=== PATIENT | female | born 1995 | race Caucasian/White ===

== ENCOUNTER 2019-01-20 00:01 | Emergency (ER) | payer OTHER ==
[~2019-01-20] VITALS: Wt 79.2 kg
[2019-01-20] MEDS ORDERED: LORAZEPAM 1 MG TAB PO ONE (00:30)
[2019-01-20] MEDS ORDERED: LORA1TAB PO (01:38)
--- NOTE | 2019-01-20 01:46 | ERD ---
ER Documentation Chief Complaint Chief Complaint ANXIETY ATTACK HPI 23-year-old female with no significant past medical history brought in by mother with concerns for anxiety attack which began just prior to arrival. The patient states she feels pressure in her chest with associated shortness of breath. She states she has been under a significant amount of stress recently due to a knee injury as well as stress at school. She denies any homicidal or suicidal ideation. She denies any fevers, chills, or other symptoms at this time. ROS All systems reviewed and are negative except as per history of present illness. Medications Home Meds Active Scripts Lorazepam* (Lorazepam*) 1 Mg Tablet, 1 MG PO Q8H PRN for ANXIETY, #10 TAB Prov:NEY SMITH PA-C 01/20/19 Allergies Allergies: Coded Allergies: Penicillins (Verified Allergy, Unknown, 01/20/19) PMhx/Soc Medical and Surgical Hx: pt denies Medical Hx, pt denies Surgical Hx Hx Alcohol Use: No Hx Substance Use: No Hx Tobacco Use: No Smoking Status: Never smoker FmHx Family History: No diabetes Physical Exam Vitals Vital Signs Date Temp Pulse Resp B/P (MAP) Pulse Ox O2 O2 Flow FiO2 Time Delivery Rate 01/20/19 98.6 94 18 117/71 96 Room Air 01:53 (86) 01/20/19 98.9 121 26 137/72 97 00:06 (93) Physical Exam Const: No acute distress Head: Atraumatic Eyes: Normal Conjunctiva ENT: Normal External Ears, Nose and Mouth. Neck: Full range of motion. No meningismus. Resp: Clear to auscultation bilaterally Cardio: Regular rate and rhythm, no murmurs Skin: No petechiae or rashes Back: No midline or flank tenderness Ext: No cyanosis, or edema Neur: Awake and alert Psych: Anxious and tearful. Denies homicidal or suicidal ideation. Results 24 hrs Current Medications Medications Dose Sig/Etelvina Start Time Status Last (Trade) Ordered Route PRN Stop Time Admin Dose Reason Admin Lorazepam 1 mg ONCE ONCE 01/20/19 DC 01/20/19 (Ativan) PO 00:30 00:36 01/20/19 00:31 Procedures/MDM 23-year-old female presenting to the emergency department with complaints of anxiety attack. The patient denied homicidal or suicidal ideation. Patient is found to be tachycardic initially but pulse normalized after administration of Ativan. She was administered Ativan in the department with good response. She was significantly improved prior to discharge. Chest x-ray was negative for any significant acute abnormalities. The full report interpreted by the radiologist may be viewed above. No evidence to suggest pulmonary embolism, pneumothorax, pneumonia, acute coronary syndrome, or other emergencies. Patient stable and appropriate for discharge and further outpatient management. She was in agreement with the diagnosis, plan, need for follow-up, return precautions. EKG: Interpreted by ED physician. Rate/Rhythm: Normal Sinus Rhythm with a rate of 95 bpm. QRS, ST, T-waves: No changes consistent w/ acute ischemia Impression: No evidence of ischemia or arrhythmia Departure Diagnosis: Primary Impression: Anxiety reaction Condition: Fair Patient Instructions: Your Body's Response to Anxiety, Anxiety Reaction Referrals: [facility] YOU HAVE RECEIVED A MEDICAL SCREENING EXAM AND THE RESULTS INDICATE THAT YOU DO NOT HAVE A CONDITION THAT REQUIRES URGENT TREATMENT IN THE EMERGENCY DEPARTMENT. FURTHER EVALUATION AND TREATMENT OF YOUR CONDITION CAN WAIT UNTIL YOU ARE SEEN IN YOUR DOCTORS OFFICE WITHIN THE NEXT 1-2 DAYS. IT IS YOUR RESPONSIBILITY TO MAKE AN APPOINTMENT FOR FOLOW-UP CARE. IF YOU HAVE A PRIMARY DOCTOR --you should call your primary doctor and schedule an appointment IF YOU DO NOT HAVE A PRIMARY DOCTOR YOU CAN CALL OUR PHYSICIAN REFERRAL HOTLINE AT IF YOU CAN NOT AFFORD TO SEE A PHYSICIAN YOU CAN CHOSE FROM THE FOLLOWING [facility] [address] [facility]. [facility] [address] [facility] [facility] [address] [facility] [facility] [address] [facility] [facility] [facility] [address] [facility]. [facility]. [address] Additional Instructions: Call your primary care doctor TOMORROW for an appointment during the next 1-2 days.See the doctor sooner or return here if your condition worsens before your appointment time. NEY SMITH PA-C January 20, 2019 01:46
[2019-01-20 01:53] VITALS: BP 117/71; PULSE 94; RESP 18
--- NOTE | 2019-01-21 14:31 | RADRPT ---
Vent Rate: 95 bpm RR Interval: 0 msec GA Interval: 128 msec QRS Duration: 84 msec QT Interval: 338 msec QTC Interval: 424 msec P-R-T Witt: 68 - 70 - 60 degrees Normal sinus rhythm Normal ECG Electronically Signed By: [facility]
== END 2019-01-20 01:53 | disposition home or self-care (01) ==
LOC: FTE 00:01
DX: F41.9 Anxiety disorder, unspecified (principal)
CPT/HCPCS: 71045; 93005; Z7610

== ENCOUNTER 2019-01-27 22:11 | Emergency (ER) | payer OTHER ==
[~2019-01-27] VITALS: Ht 162.6 cm; Wt 68.6 kg
[~2019-01-27 22:11] MED LIST: LORA1TAB PO
[2019-01-27 22:20] VITALS: Ht 162.6 cm; Wt 68.6 kg
--- NOTE | 2019-01-27 23:45 | ERD ---
ER Documentation Chief Complaint Chief Complaint PANIC ATTACK AT 1999 TOOK MEDS FEELS WORSE NOW HPI This is a 23-year-old female who presents emergency department with complaints of anxiety, panic attack at around 8 PM. Stated that this happened after taking buspirone. LMP: Last month. Denies headache, head injury, loss of consciousness, dizziness, neck pain, neck stiffness, throat pain, difficulty swallowing, difficulty breathing lying flat, shoulder pain, chest pain, chest pressure, back pain, abdominal pain, nausea, vomiting, constipation, diarrhea, urinary symptoms, or possibility being , loss of bowel and bladder control, trauma, injury, falls, difficulty walking due to pain, numbness or tingling sensation, calf pain, recent travel, recent major surgery in the last 3 weeks, calf pain, recent long travel, recent exposure to any illness, recent antibiotic use in the last 3 months, fever, chills, seizures. Past medical history: Anxiety. Depression. Surgical history: Social: Denies smoking, use of alcoholic beverages, use of illegal drugs. ROS All systems reviewed and are negative except as per history of present illness. Medications Home Meds Active Scripts Hydroxyzine Hcl* (Hydroxyzine Hcl*) 50 Mg Tablet, 50 MG PO Q6H PRN for ANXIETY, #30 TAB Prov:ALICIA BRAGG 01/28/19 Lorazepam* (Lorazepam*) 1 Mg Tablet, 1 MG PO Q8H PRN for ANXIETY, #10 TAB Prov:NEY SMITH PA-C 01/20/19 Allergies Allergies: Coded Allergies: Penicillins (Verified Allergy, Unknown, 01/20/19) PMhx/Soc Hx Alcohol Use: No Hx Substance Use: No Hx Tobacco Use: No Physical Exam Vitals Vital Signs Date Temp Pulse Resp B/P (MAP) Pulse Ox O2 O2 Flow FiO2 Time Delivery Rate 01/28/19 98.4 98 16 112/66 98 Room Air 01:18 (81) 01/27/19 115 26 125/64 97 Room Air 23:00 (84) 01/27/19 98.3 140 29 152/85 98 22:20 (107) Physical Exam Const: No acute distress Head: Atraumatic Eyes: Normal Conjunctiva ENT: Normal External Ears, Nose and Mouth. Throat/lips: No lip swelling. No tongue swelling. No drooling. Able to control tongue movement. No facial swelling. No tripoding. No signs of angioedema. Neck: Full range of motion. No meningismus. Resp: Clear to auscultation bilaterally. Chest area: Examined with female compounder helper, RN. No vesicular lesions. No tenderness. Cardio: Regular rate and rhythm, no murmurs Abd: Soft, non tender, non distended. Normal bowel sounds. No abdominal tenderness. Skin: No petechiae or rashes. Color appears normal for ethnicity. No diaphoresis. No skin tenting. No signs of severe dehydration. Back: No midline or flank tenderness Ext: No cyanosis, or edema. No calf tenderness bilaterally. Neur: Awake and alert. No neurological deficits. Psych: Normal Mood and Affect. Denies auditory/visual hallucinations/delusions. Not suicidal. Not homicidal. Has the capacity to decide for herself. Has good support system at home. Results 24 hrs Current Medications Medications Dose Sig/Etelvina Start Time Status Last (Trade) Ordered Route PRN Stop Time Admin Dose Reason Admin Aspirin 325 mg ONCE ONCE 01/28/19 DC 01/28/19 (Aspirin) PO 00:00 00:11 01/28/19 00:01 Lorazepam 1 mg ONCE ONCE 01/28/19 DC 01/28/19 (Ativan) PO 00:00 00:10 01/28/19 00:01 Procedures/MDM Diagnostic tests: EKG: Sinus tachycardia with a ventricular rate of 119 bpm. No STEMI. Read by supervising physician. Treatment: Aspirin. Ativan. Re-evaluation: Denies chest pain, neck pain, chest pressure, difficulty breathing when lying flat, back pain. Denies auditory/visual hallucinations/delusions. No calf tenderness bilaterally. Not suicidal. Not homicidal. Has the capacity to decide for herself. Has good support system at home. Heart rate is 99. Oxygen is 100%. Appears comfortable while waiting in the waiting area. Patient and her mother stated that they are comfortable going home. Differential diagnosis I have low suspicion for sepsis, pulmonary embolism, pneumothorax, pneumonia, DVT. Final diagnosis: Anxiety. Prescription: Hydroxyzine. Follow-up with PCP in the next 24-48 hours. Come back here in the emergency department for any new symptoms or any worsening symptoms. All questions and concerns were answered. Patient and family members verbalized understanding and agreed with plan of care. Hemodynamically stable on discharge. Departure Diagnosis: Primary Impression: Anxiety attack Condition: Stable Additional Instructions: Follow-up with PCP in the next 24-48 hours. Come back here in the emergency department for any new symptoms or any worsening symptoms. ALICIA BRAGG January 27, 2019 23:45
[2019-01-28] MEDS ORDERED: LORAZEPAM 1 MG TAB PO ONE
[2019-01-28] MEDS ORDERED: ASPIRIN 325 MG TAB PO ONE
[2019-01-28] MEDS ORDERED: HYDR50TA15 PO (01:15)
[2019-01-28 01:18] VITALS: BP 112/66; PULSE 98; RESP 16
== END 2019-01-28 01:38 | disposition home or self-care (01) ==
LOC: FTE 22:11
DX: F41.9 Anxiety disorder, unspecified (principal)
CPT/HCPCS: 93005; Z7502; Z7610

== ENCOUNTER 2019-04-28 21:20 | Emergency (ER) | payer OTHER ==
[~2019-04-28] VITALS: Ht 165.1 cm; Wt 65.0 kg
[~2019-04-28 21:20] MED LIST changes: +CEPH-443 PO; +HYDR50TA15 PO; +RANI150T35 PO
[2019-04-28 21:25] VITALS: Ht 165.1 cm; Wt 65.0 kg
[2019-04-28] MEDS ORDERED: RANITIDINE 150 MG TAB PO ONE (22:30)
[2019-04-28] MEDS ORDERED: LIDOCAINE/MYLANTA 40 ML BTL PO ONE (22:30)
[2019-04-28 23:20] VITALS: BP 107/70; PULSE 75; RESP 18
== END 2019-04-28 23:21 | disposition home or self-care (01) ==
LOC: FTE 21:20
DX: N39.0 Urinary tract infection, site not specified (principal)
CPT/HCPCS: 81003; 81025; 87086; Z7502; Z7610; 99283

== ENCOUNTER 2019-05-31 14:11 | Emergency (ER) | payer OTHER ==
[~2019-05-31] VITALS: Ht 160 cm; Wt 64.6 kg
[~2019-05-31 14:11] MED LIST changes: +IBUP-1542 PO; +NITR-58 PO; +ONDA4TAB8 PO; +RANI-535 PO; -RANI150T35 PO
[2019-05-31 14:49] VITALS: Ht 160 cm; Wt 64.6 kg
[2019-05-31] MEDS ORDERED: BELLADONNA/PHENOBARBITAL TAB PO STA (16:06)
[2019-05-31] MEDS ORDERED: SOD CHLORIDE 0.9% 1,000 ML IV STA (16:06)
[2019-05-31] MEDS: ONDANSETRON 4 MG INJ IV STA ×2 (16:27→16:34)
[2019-05-31] MEDS: LIDOCAINE/MYLANTA 40 ML BTL PO STA ×2 (16:28→16:34)
[2019-05-31] MEDS: KETOROLAC 15 MG INJ IV STA ×2 (16:28→16:34)
[2019-05-31] MEDS ORDERED: SOD CHLORIDE 0.9% 100 ML ONE (17:43)
[2019-05-31] MEDS ORDERED: IOHEXOL 300MG/ML 150 ML BTL ONE (17:43)
[2019-05-31 18:55] VITALS: BP 105/60; PULSE 70; RESP 18
== END 2019-05-31 18:55 | disposition home or self-care (01) ==
LOC: FTE 14:11
DX: K62.5 Hemorrhage of anus and rectum (principal); K29.00 Acute gastritis without bleeding; R10.9 Unspecified abdominal pain
CPT/HCPCS: 36415; 74177; 80053; 81001; 81025; 83690; 85025; 93005; 96360; 96361; J1885; J2405; J7030; Q9967; Z7502; Z7610